=== PATIENT | male | born 1955 ===

== ENCOUNTER 2018-03-26 16:32 | Emergency (ER) | payer OTHER ==
[~2018-03-26] VITALS: Ht 167.6 cm; Wt 76.7 kg
[~2018-03-26 16:32] MED LIST: ALBIPROI INH; ALBU90OI; HYDACE5 PO; PHENY100ER; PRED20 PO; SULTRIDS PO
== END 2018-03-26 17:48 | disposition home or self-care (01) ==
LOC: ER 16:32
DX: M17.11 Unilateral primary osteoarthritis, right knee (principal); Z88.8 Allergy status to other drugs, medicaments and biological substances; Z79.899 Other long term (current) drug therapy; Z79.52 Long term (current) use of systemic steroids; Z79.891 Long term (current) use of opiate analgesic
CPT/HCPCS: 29505; 73562-RT; 99283-25

== ENCOUNTER 2018-05-02 20:41 | Emergency (ER) | payer OTHER ==
[~2018-05-02] VITALS: Ht 167.6 cm; Wt 63.5 kg
[2018-05-02] MEDS ORDERED: CARB200 PO (21:45)
[2018-05-02] MEDS ORDERED: SUCR1 PO (21:45)
[2018-05-02] MEDS ORDERED: ACET325 PO (21:46)
[2018-05-03 00:29] LABS: Source, Urine Clean Catch
[2018-05-03 00:34] LABS: Bilirubin, Urine Neg (Neg); Blood, Urine Neg (Neg); Glucose Qualitative, Urine Neg (Neg); Ketones, Urine Neg (Neg); Leukocyte Esterase, Urine Neg (Neg); Nitrite, Urine Neg (Neg); Protein, Urine Neg (Neg); Specific Gravity, Urine 1.005 (1.003-1.022); Urobilinogen, Urine NORM (Normal); pH, Urine 6.5 (5.0-8.0)
[2018-05-03 00:37] LABS: Appearance, Urine Clear (Clear); Color, Urine Yellow (P-Yellow)
== END 2018-05-03 01:15 | disposition home or self-care (01) ==
LOC: ER 20:41
PROVIDERS: Emergency Medicine
DX: S70.01XA Contusion of right hip, initial encounter (principal); W01.198A Fall on same level from slipping, tripping and stumbling with subsequent striking against other object, initial encounter; Z88.8 Allergy status to other drugs, medicaments and biological substances; Z79.899 Other long term (current) drug therapy; Z59.0 Homelessness; Z76.0 Encounter for issue of repeat prescription
CPT/HCPCS: 72100; 73502; 81003; 99281; 99284-25

== ENCOUNTER 2018-05-03 03:16 | Emergency (ER) | payer OTHER ==
[~2018-05-03] VITALS: Ht 167.6 cm; Wt 72.6 kg
[~2018-05-03 03:16] MED LIST changes: +ACET325 PO; +CARB200 PO; +SUCR1 PO
== END 2018-05-03 06:23 | disposition home or self-care (01) ==
LOC: ER 03:16
DX: Z76.0 Encounter for issue of repeat prescription (principal); Z88.8 Allergy status to other drugs, medicaments and biological substances; Z79.899 Other long term (current) drug therapy; Z59.0 Homelessness
CPT/HCPCS: 99281

== ENCOUNTER 2018-05-03 17:25 | Observation (INO) | payer OTHER ==
[~2018-05-03] VITALS: Ht 167.6 cm; Wt 72.6 kg
[2018-05-03 18:25] LABS: Source, Urine Clean Catch
[2018-05-03 18:31] LABS: Bilirubin, Urine Neg (Neg); Blood, Urine Neg (Neg); Glucose Qualitative, Urine Neg (Neg); Ketones, Urine Neg (Neg); Leukocyte Esterase, Urine Neg (Neg); Nitrite, Urine Neg (Neg); Protein, Urine Neg (Neg); Urobilinogen, Urine NORM (Normal); pH, Urine 6.5 (5.0-8.0)
[2018-05-03 18:55] LABS: Appearance, Urine Clear (Clear); Color, Urine Yellow (P-Yellow)
[2018-05-03 19:02] LABS: U Amphetamine Screen Not Detected; U Barbituate Screen Not Detected; U Benzodiazapine Screen Not Detected; U Buprenorphine Screen Not Detected; U Cannabinoids Screen Not Detected; U Cocaine Screen Not Detected; U Methadone Screen Not Detected; U Methamphetamine Screen Not Detected; U Opiates Screen Not Detected; U Oxycodone Screen Not Detected; U Phencyclidine Screen Not Detected; U Propoxyphene Screen Not Detected
[2018-05-03 20:05] LABS: BASOPHILS ABSOLUTE AUTO 0.04 K/mm3 (0.00-0.23); BASOPHILS PERCENT AUTO 1 % (0-2); EOSINOPHILS ABSOLUTE AUTO 0.08 K/mm3 (0.00-0.68); EOSINOPHILS PERCENT AUTO 1 % (0-6); Hematocrit 46.2 % (37.0-53.0); Hemoglobin 16.3 g/dL (13.5-17.5); IMMATURE GRAN ABSOLUTE AUTO 0.08 K/mm3 (0.00-0.10); IMMATURE GRAN PERCENT AUTO 1 % (0-1); LYMPHOCYTES ABSOLUTE AUTO 3.05 K/mm3 (0.84-5.20); LYMPHOCYTES PERCENT AUTO 39 % (21-46); MONOCYTES ABSOLUTE AUTO 0.84 K/mm3 (0.16-1.47); MONOCYTES PERCENT AUTO 11 % (4-13); Mean Corpuscular HGB 33.4 pg (26.0-34.0); Mean Corpuscular HGB Conc 35.3 g/dL (31.5-36.5); Mean Corpuscular Volume 95 fL (80-100); Mean Platelet Volume 8.7 fL (9.1-12.4); NEUTROPHILS ABSOLUTE AUTO 3.84 K/mm3 (1.96-9.15); NEUTROPHILS PERCENT AUTO 48 % (41-73); Platelet Count 165 K/mm3 (150-400); RDW Coefficient Variation 12.1 % (11.7-14.2); RDW Standard Deviation 42.2 fL (35.1-46.3); Red Blood Cell Count 4.88 M/mm3 (4.30-5.90); White Blood Cell Count 7.93 K/mm3 (4.00-11.30)
[2018-05-03 20:35] LABS: Ethanol (Alcohol), Blood, Med 234 mg/dL; Salicylate <1.7 mg/dL (2.8-20.0)
[2018-05-03 20:44] LABS: Acetaminophen, Random <2.0 ug/mL (10.0-30.0); Alanine Aminotransfer (ALT/SGP 54 U/L (12-78); Albumin, Blood 3.9 g/dL (3.4-5.0); Albumin/Globulin Ratio 1.1 (0.8-1.8); Alk Phos 123 U/L (50-136); Anion Gap 10 mmol/L (6-16); Aspartate Aminotrans (AST/SGOT 47 U/L (12-37); Bilirubin, Total 0.2 mg/dL (0.1-1.0); Blood Urea Nitrogen 4 mg/dL (8-24); Bun/Creatinine Ratio 7.8 (12.0-20.0); CO2, Blood 22 mmol/L (21-32); Calcium, Blood 8.6 mg/dL (8.5-10.1); Chloride, Blood 107 mmol/L (98-108); Creatinine, Blood 0.51 mg/dL (0.60-1.20); Globulin, Blood 3.6 g/dL (2.2-4.0); Glomerular Filtration Rate >60 (60-); Glucose, Blood 102 mg/dL (70-99); Potassium, Blood 3.3 mmol/L (3.5-5.5); Sodium, Blood 139 mmol/L (136-145); Total Protein, Blood 7.5 g/dL (6.4-8.2)
== END 2018-05-06 18:55 | disposition home or self-care (01) ==
LOC: ER 17:25 → EOR 17:26
PROVIDERS: ADMIT Emergency Medicine
DX: F32.89 Other specified depressive episodes (principal); F10.129 Alcohol abuse with intoxication, unspecified; S32.029A Unspecified fracture of second lumbar vertebra, initial encounter for closed fracture; R56.9 Unspecified convulsions; Z88.6 Allergy status to analgesic agent; Z79.899 Other long term (current) drug therapy; Z59.0 Homelessness; Y90.7 Blood alcohol level of 200-239 mg/100 ml; W19.XXXA Unspecified fall, initial encounter
CPT/HCPCS: 36415; 80053; 81003; 84443; 85025; 94640; 94760; 99285-25; G0378; G0480; Q3014

== ENCOUNTER 2018-05-07 17:13 | Observation (INO) | payer OTHER ==
[~2018-05-07] VITALS: Ht 165.1 cm; Wt 68.0 kg
[2018-05-07 19:30] LABS: Source, Urine Clean Catch
[2018-05-07 19:35] LABS: Appearance, Urine Clear (Clear); Bilirubin, Urine Neg (Neg); Blood, Urine Neg (Neg); Color, Urine Yellow (P-Yellow); Glucose Qualitative, Urine Neg (Neg); Ketones, Urine Neg (Neg); Leukocyte Esterase, Urine Neg (Neg); Nitrite, Urine Neg (Neg); Protein, Urine Neg (Neg); Specific Gravity, Urine 1.015 (1.003-1.022); Urobilinogen, Urine NORM (Normal)
[2018-05-07 19:48] LABS: Acetaminophen, Random <2.0 ug/mL (10.0-30.0); Salicylate <1.7 mg/dL (2.8-20.0); Thyroxine (T4) 10.1 ug/dL (4.5-12.1)
[2018-05-07 19:50] LABS: Thyroid Stimulating Hormone 0.449 uIU/mL (0.360-4.800)
[2018-05-07 20:00] LABS: U Amphetamine Screen Not Detected; U Barbituate Screen Not Detected; U Benzodiazapine Screen Not Detected; U Buprenorphine Screen Not Detected; U Cannabinoids Screen Not Detected; U Cocaine Screen Not Detected; U Methadone Screen Not Detected; U Methamphetamine Screen Not Detected; U Opiates Screen Not Detected; U Oxycodone Screen Not Detected; U Phencyclidine Screen Not Detected; U Propoxyphene Screen Not Detected
[2018-05-07 20:06] LABS: Alanine Aminotransfer (ALT/SGP 46 U/L (12-78); Albumin, Blood 3.8 g/dL (3.4-5.0); Albumin/Globulin Ratio 1.1 (0.8-1.8); Alk Phos 117 U/L (50-136); Anion Gap 10 mmol/L (6-16); Aspartate Aminotrans (AST/SGOT 29 U/L (12-37); Bilirubin, Total 0.3 mg/dL (0.1-1.0); Blood Urea Nitrogen 7 mg/dL (8-24); Bun/Creatinine Ratio 17.2 (12.0-20.0); CO2, Blood 24 mmol/L (21-32); Calcium, Blood 8.2 mg/dL (8.5-10.1); Chloride, Blood 105 mmol/L (98-108); Creatinine, Blood 0.41 mg/dL (0.60-1.20); Globulin, Blood 3.5 g/dL (2.2-4.0); Glomerular Filtration Rate >60 (60-); Glucose, Blood 89 mg/dL (70-99); Potassium, Blood 4.2 mmol/L (3.5-5.5); Sodium, Blood 139 mmol/L (136-145); Total Protein, Blood 7.3 g/dL (6.4-8.2)
[2018-05-07 20:34] LABS: BASOPHILS ABSOLUTE AUTO 0.05 K/mm3 (0.00-0.23); BASOPHILS PERCENT AUTO 1 % (0-2); EOSINOPHILS ABSOLUTE AUTO 0.17 K/mm3 (0.00-0.68); EOSINOPHILS PERCENT AUTO 2 % (0-6); Hematocrit 42.2 % (37.0-53.0); Hemoglobin 14.6 g/dL (13.5-17.5); IMMATURE GRAN ABSOLUTE AUTO 0.07 K/mm3 (0.00-0.10); IMMATURE GRAN PERCENT AUTO 1 % (0-1); LYMPHOCYTES ABSOLUTE AUTO 3.52 K/mm3 (0.84-5.20); LYMPHOCYTES PERCENT AUTO 49 % (21-46); MONOCYTES ABSOLUTE AUTO 1.07 K/mm3 (0.16-1.47); MONOCYTES PERCENT AUTO 15 % (4-13); Mean Corpuscular HGB 33.6 pg (26.0-34.0); Mean Corpuscular HGB Conc 34.6 g/dL (31.5-36.5); Mean Corpuscular Volume 97 fL (80-100); Mean Platelet Volume 8.8 fL (9.1-12.4); NEUTROPHILS ABSOLUTE AUTO 2.38 K/mm3 (1.96-9.15); NEUTROPHILS PERCENT AUTO 33 % (41-73); Platelet Count 221 K/mm3 (150-400); RDW Coefficient Variation 12.7 % (11.7-14.2); Red Blood Cell Count 4.34 M/mm3 (4.30-5.90); White Blood Cell Count 7.26 K/mm3 (4.00-11.30)
== END 2018-05-08 12:04 | disposition home or self-care (01) ==
LOC: ER 17:13 → EOR 17:14
PROVIDERS: ADMIT Emergency Medicine
DX: F10.129 Alcohol abuse with intoxication, unspecified (principal); M25.551 Pain in right hip; R56.9 Unspecified convulsions; Z88.6 Allergy status to analgesic agent; Z79.899 Other long term (current) drug therapy; Z59.0 Homelessness; Y90.8 Blood alcohol level of 240 mg/100 ml or more
CPT/HCPCS: 36415; 72170; 80053; 81003; 84436; 84443; 85025; 99285-25; G0378; G0480

== ENCOUNTER 2018-05-10 06:23 | Observation (INO) | payer OTHER ==
[~2018-05-10] VITALS: Ht 167.6 cm; Wt 69.9 kg
[2018-05-10 09:00] LABS: Calcium, Ionized (POC) 1.06 mmol/L (1.10-1.46); Chloride (POC) 96 mmol/L (98-108); Creatinine (POC) 0.6 mg/dL (0.8-1.3); Glucose (ISTAT POC) 97 mg/dL (70-99); Hemoglobin (POC) 16.7 g/dL (13.5-17.5); Potassium (POC) 4.1 mmol/L (3.5-5.5); Sodium (POC) 141 mmol/L (135-148); Total CO2 (POC) 27 mmol/L (21-32)
[2018-05-10 09:35] LABS: Carbamazepine 6.8 ug/mL (4.0-12.0)
[2018-05-10] MEDS ORDERED: FLUT1DIS5 INH (14:19)
[2018-05-10] MEDS ORDERED: ALBU90OI INH (14:19)
[2018-05-10] MEDS ORDERED: NAPR500EC PO (14:20)
[2018-05-10] MEDS ORDERED: TRAZ50 PO (14:20)
[2018-05-10] MEDS ORDERED: ACET500 PO (18:48)
[2018-05-11 03:54] LABS: BASOPHILS ABSOLUTE AUTO 0.04 K/mm3 (0.00-0.23); BASOPHILS PERCENT AUTO 1 % (0-2); EOSINOPHILS ABSOLUTE AUTO 0.11 K/mm3 (0.00-0.68); EOSINOPHILS PERCENT AUTO 1 % (0-6); Hematocrit 40.5 % (37.0-53.0); Hemoglobin 14.2 g/dL (13.5-17.5); IMMATURE GRAN ABSOLUTE AUTO 0.02 K/mm3 (0.00-0.10); IMMATURE GRAN PERCENT AUTO 0 % (0-1); LYMPHOCYTES ABSOLUTE AUTO 2.02 K/mm3 (0.84-5.20); LYMPHOCYTES PERCENT AUTO 25 % (21-46); MONOCYTES ABSOLUTE AUTO 1.32 K/mm3 (0.16-1.47); MONOCYTES PERCENT AUTO 17 % (4-13); Mean Corpuscular HGB 33.7 pg (26.0-34.0); Mean Corpuscular HGB Conc 35.1 g/dL (31.5-36.5); Mean Corpuscular Volume 96 fL (80-100); Mean Platelet Volume 9.4 fL (9.1-12.4); NEUTROPHILS PERCENT AUTO 56 % (41-73); Platelet Count 186 K/mm3 (150-400); RDW Coefficient Variation 12.5 % (11.7-14.2); RDW Standard Deviation 43.7 fL (35.1-46.3); Red Blood Cell Count 4.21 M/mm3 (4.30-5.90); White Blood Cell Count 8.01 K/mm3 (4.00-11.30)
--- NOTE | 2018-05-11 04:13 | NUR ---
SHIFT SUMMARY PT A&O X4, CALM AND COOPERATIVE. CIWA SCORE OF '0' T/O SHIFT. PT DENIES PAIN, N&V, NUMBNESS & TINGLING. LUNG SOUNDS COARSE T/O. SPO2 > 92% ON RA. MONITOR SHOWS NSR/ST, HR 80-110. PT CONTINENT, STANDS AT BEDSIDE FOR URINAL USE W/ STAFF ASSIST. PT REQUESTING SNACKS AND DRINKS T/O SHIFT. PT R HAND RED AND SLIGHTLY SWOLLEN. PT STATES HAND TO HAVE BEEN BROKEN MULTIPLE TIMES OVER THE LAST 2 YRS AND STATES "I PUNCH NOBLE INSTEAD OF WOMEN BECAUSE I HAVE RESPECT FOR WOMEN." PT SHOWS NO SIGN OF AGGRESSION OR COMBATIVENESS TOWARDS STAFF. PT EXPRESSES CONTINUAL GRATITUDE FOR CARE. WILL CONTINUE TO MONITOR AND PROVIDE CARE UNTIL REPORT OFF TO DAY SHIFT RN.
[2018-05-11 04:19] LABS: Alanine Aminotransfer (ALT/SGP 36 U/L (12-78); Albumin, Blood 3.1 g/dL (3.4-5.0); Albumin/Globulin Ratio 1.1 (0.8-1.8); Alk Phos 136 U/L (50-136); Anion Gap 8 mmol/L (6-16); Aspartate Aminotrans (AST/SGOT 29 U/L (12-37); Bilirubin, Total 0.6 mg/dL (0.1-1.0); Blood Urea Nitrogen 14 mg/dL (8-24); Bun/Creatinine Ratio 24.9 (12.0-20.0); CO2, Blood 25 mmol/L (21-32); Calcium, Blood 7.7 mg/dL (8.5-10.1); Chloride, Blood 106 mmol/L (98-108); Creatinine, Blood 0.56 mg/dL (0.60-1.20); Globulin, Blood 2.8 g/dL (2.2-4.0); Glomerular Filtration Rate >60 (60-); Glucose, Blood 116 mg/dL (70-99); Magnesium, Blood 2.2 mg/dL (1.6-2.4); Potassium, Blood 3.6 mmol/L (3.5-5.5); Sodium, Blood 139 mmol/L (136-145); Total Protein, Blood 5.9 g/dL (6.4-8.2)
--- NOTE | 2018-05-11 07:57 | NUR ---
pt laying in bed watching tv, is trying to make phone call, but needs assistance. a/ox3, pleasant and cooperative with care, follows commands well, denies pain, lungs are course with exp wheezing t/o, he reports hx of asthma, resp even and unlabored, no cough noted, hrr, tele in place running sr per monitor, see strip, no edema noted, ppp+2, cap refill <3sec, vs stable, afebrile, iv site is clear and patent, btx4, reports voids without diff, skin c/w/d, maew, a bit unsteady, sba to br, uses a cane to ambulate, jane, call light in reach.
--- NOTE | 2018-05-11 12:41 | NUR ---
Spiritual care visit conducted. Patient welcomed me into the room after I identified myself and the department I am from. Patient openly shared about his struggle with alcohol, his family unit complications and his fears about being forced to live out on the streets again. I listened empathically, provided pastoral school adjustment counselor, provided companionship and provided prayer. Patient responded well and expressed gratitude for the visit.
--- NOTE | 2018-05-11 14:20 | NUR ---
pt laying on his side sleeping. wakes easily, has no complaints. call light in reach.
--- NOTE | 2018-05-11 18:43 | NUR ---
PT HAS HAD AN UNEVENTFUL DAY, HAS BEEN COOPERATIVE AND KIND. APPRECIATIVE OF CARE. HE HAS SAID A FEW THINGS THAT WERE JUST A BIT OFF. NO FURTHER CHANGES THIS SHIFT. CALL LIGHT IN REACH.
--- NOTE | 2018-05-12 04:47 | NUR ---
SHIFT SUMMARY PT MEDICAL NO TELE STATUS. A&O X4, PLEASANT AND COOPERATIVE. SBA INTO BATHROOM. NO COMPLAINTS FROM PT UNTIL THIS MORNING, PT WOKE SWEATY. WASH CLOTHES PROVIDED TO PT FOR SPONGE BATH D/T PT DESIRE TO HOLD OFF ON A SHOWER UNTIL READY TO BE FURTHER AWAKE. PT TEMP WNL. VSS. LUNG SOUNDS COARSE W/ EXP WHEEZE IN UPPER LOBES. BILAT LOWER LOBES DIM. PT DENIES PAIN, DENIES NAUSEA. PT STATES BROTHER FROM [place] COMING TO GET HIM SOON. PT STATES "I HOPE HE COMES TODAY." PT STATES DESIRE TO DISCHARGE TO [facility] THEN STATES, "I'M STILL WAITING TO DISCHARGE TO [facility]. I'LL DO WHICHEVER ONE COMES FIRST." PT LYING IN BED W/ CALL LIGHT IN REACH. WILL CONTINUE TO MONITOR AND PROVIDE CARE UNTIL REPORT OFF TO DAY SHIFT RN.
--- NOTE | 2018-05-12 07:27 | NUR ---
PT LAYING IN BED AWAKE WATCHING TV, ATTEMPTING TO MAKE PHONE CALL BUT STATES HE CANT GET THROUGH, THIS HAPPENED YESTERDAY, IS FORGETTING TO DIAL 9 EVEN THOUGH THIS WAS TOLD TO HIM. SEEMS IN GOOD SPIRITS, LUNGS HAVE SOME EXP WHEEZING, BUT NOT BAD YESTERDAY, IS ON R/A, RESP EVEN AND UNLABORED, NO COUGH NOTED AT THIS TIME, HRR, NO EDEMA NOTED, PPP+2, CAP REFILL <3SEC, VS STABLE, AFEBRILE, IV SITE IS CLEAR AND PATENT, BTX4, ABD FLAT SOFT NONTENDER, VOIDS CLEAR YELLOW WITHOUT DIFF, SKIN C/W/D, MAVALENTÍN, RAY, CALL LIGHT IN REACH.
--- NOTE | 2018-05-12 16:23 | NUR ---
pt has been transfered to medical floor via wheelchair with garnett room worker in attendence. all belongings went with him. report given to Ihsan BARILLAS.
--- NOTE | 2018-05-12 19:11 | NUR ---
SHIFT SUMMARY: PATIENT TRANSFER FROM [facility] THIS SHIFT. PT A&O; CALM AND COOEPRATIVE WITH CARE. NO C/O PAIN OR NAUSEA SINCE ARRIVAL ON MEDICAL. HX SEIZURES; TEGRETOL KIMMIE. AWAITING PLACEMENT IN INPATIENT PSYCH FACILITY; DISCHARGE PLANNERS FOLLOWING. REPORT GIVEN TO ONCOMING RN.
--- NOTE | 2018-05-12 22:41 | NUR ---
discharge planning for inpt psych unit continues. PT was transferred to medical floor 1551 today. he has not been transferred to [facility] as wrote in his progress note. THey would not take him until he is 2 weeks seizure free. he is showing no seizure activity or suicidal ideation. tolerating diet and activity. cooperative with medication. ciwa negative. VSS. Dalton with NARGIS Hutchison at [facility] who said they were requesting an update on PT's condition and requested lab work as yesterdays calcium level was low. Will contact director utilization management and clarify that PT has not dc yet and request discharge planning order and lab test.
--- NOTE | 2018-05-12 23:45 | NUR ---
DR POWELL updated on DC order which stated PT was to dc yesterday to [facility] and they can't take PT for another 12 days seizure free. hold dc until in psych facility available written and SW referral to assist with DC plan. Bed may be available at [facility] after they review updated lab work and updated physical assessment. BMP ordered for this AM and will share results with requesting facilty.
[2018-05-13 06:07] LABS: Anion Gap 8 mmol/L (6-16); Blood Urea Nitrogen 13 mg/dL (8-24); Bun/Creatinine Ratio 24.1 (12.0-20.0); CO2, Blood 24 mmol/L (21-32); Calcium, Blood 8.8 mg/dL (8.5-10.1); Chloride, Blood 109 mmol/L (98-108); Creatinine, Blood 0.54 mg/dL (0.60-1.20); Glomerular Filtration Rate >60 (60-); Glucose, Blood 140 mg/dL (70-99); Potassium, Blood 3.6 mmol/L (3.5-5.5); Sodium, Blood 141 mmol/L (136-145)
--- NOTE | 2018-05-13 06:23 | NUR ---
PT up independent in room this AM, pleasant and cooperative. discussed discharge planning and PT has no objection to being dc to [facility] inpt behavioral health unit on discharge. no s/sx of etoh withdrawl or seizure activity. calcium level wnl this am. no agression or hostile type behavior. denies suicidal ideation. discussing need to stop beer. 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 hx of multiple inpt ETOH cessation programs with return to beer use, no hard alcohol use. encouraged cessation of substance abuse. PT has no family in area, metions his Mother fondly several times who lives in [facility]. Says Family will be glad he is getting help. continue with discharge planning for voluntary inpt PSYCH.
--- NOTE | 2018-05-13 09:09 | NUR ---
FAXED RECENT BMP AND ASSESSMENT TO [facility] AT [phone] REQUESTED.
--- NOTE | 2018-05-13 18:10 | NUR ---
SPOKE WITH DANI AT [facility] RE: PATIENT BEING ADMITTED TO THEIR FACILITY FOR INPATIENT PSYCH TREATMENT. DANI STATED THAT, BASED ON DR CHOWDHURY'S NOTES, [facility] WOULD NOT ACCEPT THE PATIENT, THE PATIENT WOULD BETTER BENEFIT FROM A SUBSTANCE ABUSE PROGRAM. CHARGE NURSE UPDATED WITH NEW INFO.
--- NOTE | 2018-05-13 18:45 | NUR ---
SHIFT SUMMARY: NO ACUTE CHANGES TO REPORT THIS SHIFT. PT A&O; CALM AND COOPERATIVE WITH CARE; INDEPENDENT IN ROOM. NO IV ACCESS. MEDICATED FOR PAIN PER EMAR. AWAITING PLACEMENT IN INPATIENT PSYCH FACILITY. [facility]ANY.
--- NOTE | 2018-05-14 04:45 | NUR ---
pt continues to be pleasant and cooperative while placement at in psych facility is sought. no s/sx of ETOH withdrawl or seizure activity. up independent in room. cooperative with medication and able to communicate and do adls.
--- NOTE | 2018-05-14 10:22 | NUR ---
CALLED THE FOLLOWING FACILITIES REQUESTING BED AVAILABILITY: 1) [facility]-NO BEDS 2) [facility]-AFTER HOURS NUMBER OUT OF SERVICE 3) [facility]-NO BEDS 4) [facility]-NO BEDS BUT WILL CALL IF ONE COMES OPEN 5) [facility]- NO BEDS
--- NOTE | 2018-05-14 17:25 | NUR ---
pt requesting help with rosamelissa which broke. obtained blake from [facility]. review of needs with patient. he has his cross in his wallet in bedside table. advised will have chip person see him tomorrow to address his spiritual needs and help him reapair his beloved blake.
--- NOTE | 2018-05-14 18:06 | NUR ---
SHIFT SUMMARY: NO ACUTE CHANGES TO REPORT THIS SHIFT. PT A&O; CALM AND COOPERATIVE WITH CARE; INDEPENDENT IN ROOM. MEDICATED FOR PAIN PER EMAR. AWAITING PLACEMENT. WCTM.
--- NOTE | 2018-05-15 04:05 | NUR ---
STILL PLEASANT AND COOPERATIVE WITH NO S/SX OF SEIZURE ACTIVITY. PAIN MILD RT HIP RT KNEE. TOLERATING DIET AND ACTIVITY. DENIES SUICIDAL OR HOMICIDAL IDEATION .
--- NOTE | 2018-05-15 13:29 | NUR ---
Per admit trigger, I met with Ambrosio to offer prayer and spiritual support. He is very talkative and appeared to enjoy telling me long stories about his active life. He wanted to see a bending roll operator, but understood the weather prevents this. He allowed me to pray for him. I will remain available.
--- NOTE | 2018-05-15 17:04 | NUR ---
SHIFT SUMMARY PT AXO, PLEASANT AND COOPERATIVE WITH CARE, UP AD NED IN ROOM. MEDICATED FOR R. LEG AND SHOULDER PAIN PER EMAR. VSS. NO ACUTE CHANGES THIS SHIFT, BED IN LOW POSITION, CALL LIGHT WITHIN REACH. NO IV ACCESS NEEDED. PT HAD A SHOWER THIS SHIFT.
--- NOTE | 2018-05-16 04:39 | NUR ---
SHIFT SUMMARY PATIENT HAS HAD AN UNEVENTFUL NIGHT. SOME C/O CHRONIC PAIN AT HS WITH POSITIVE RESULTS FROM [facility] REQUESTED. VITALS HAVE BEEN STABLE. PATIENT HAS BEEN APPROPRIATE WITH STAFF. WILL CONTINUE TO MONITOR.
--- NOTE | 2018-05-16 17:32 | NUR ---
PT IS A/OX3, UP IND IN HIS ROOM, THE PT APPEARS TO BE BREATHING EASILY ON RA, THE PT C/O OF LEFT SHOULDER PAIN AND RIGHT KNEE PAIN T/O THE DAY, AN ORDER FOR [facility] APPLICATION GIVEN, THE PT DENIED AND HALUCINATIONS SHAKES OR HEAD ACHES TODAY, PT REPORTED HAVING SOME MILD DIARRHEA. CALL LIGHT IN REACH, NO OTHER CHANGES NOTICED THIS SHIFT
--- NOTE | 2018-05-17 03:49 | NUR ---
Pt CIWA score is 0 with no issues noted. Pt denies any seizure activity. Pt c/o right knee and left shoulder pain with tylenol 650mg given with relief felt. Pt alert and oriented x3, pleasant and cooperative. Pt is pending discharge to inpatient psychiatric facility at this time. Pt slept well all evening.
[2018-05-17] MEDS ORDERED: AMLO5 PO (15:29)
[2018-05-17] MEDS ORDERED: ALBU90OI INH (15:31)
--- NOTE | 2018-05-17 15:57 | NUR ---
PT DISCHARGED PT WAS TAKEN TO THE ER ENTRANCE VIA WHEELCHAIR A/OX3 TO BE PICKED UP BY [facility] AND TAKEN TO THE PHARMACY AND THEN TO THE [facility] FOR TRANSFER TO HIS BROTHERS HOU[facility] IN [facility] ARRANGED BY THE RATE CLERK LACEY BARILLAS, PT APPEARED TO BE BREATHING EASILY ON RA, BELONGINGS RELASED TO THE PT, FAMILY NOTIFIED OF THE PTS RELEASE
== END 2018-05-17 15:40 | disposition home or self-care (01) ==
LOC: DELPENDDIS → ER 06:23 → PCU 06:24 → ER 15:05 → PCU 18:30 → MEDS 05-12 16:24 → ENPENDDIS 05-13 10:00 → MEDS 05-17 15:40
PROVIDERS: Family Medicine; Physician Assistant; ADMIT Internal Medicine
DX: F10.239 Alcohol dependence with withdrawal, unspecified (principal); G40.909 Epilepsy, unspecified, not intractable, without status epilepticus; F32.9 Major depressive disorder, single episode, unspecified; J45.20 Mild intermittent asthma, uncomplicated; M19.90 Unspecified osteoarthritis, unspecified site; Z87.891 Personal history of nicotine dependence; Z88.6 Allergy status to analgesic agent; Z79.899 Other long term (current) drug therapy
CPT/HCPCS: 36415; 80047; 80048; 80053; 80156; 83735; 85014; 85025; 90686; 94640; 94760; 94762; 96372; 99285; G0378; J1650; J3475; J7030; J7042